=== PATIENT | female | born 1955 | race Caucasian/White ===

== ENCOUNTER 2016-05-04 11:08 | Outpatient (CLI) | payer OTHER ==
--- NOTE | 2016-05-04 17:44 | DIAGNOSTIC IMAGING REPORT ---
PROCEDURE: MG BILATERAL SCREENING W/CAD INDICATION: Screening. Family history breast carcinoma (mother). TECHNIQUE: Bilateral CC and MLO digital views. COMPARISON: Compared to left mammogram (01/07/2016, 05/07/2015), and screening mammogram (05/01/2015). Comparison is also made to multiple prior of screening studies dating to 02/23/2006. FINDINGS: Computer-aided detection applied. Mildly dense and nodular with a few dystrophic calcifications. Stable microcalcifications in the lateral left breast. No change. IMPRESSION: 1. Negative mammogram. RESULT CODE: 1- Negative. A. A negative report should not delay biopsy if a dominant or clinically suspicious mass is present. 10-15% of cancers are not identified by x-ray. B. A negative report may reinforce clinical impression. C. Adenosis and dense breasts may obscure an underlying neoplasm. D. False positive reports average 6-10%. E.. A yearly screening mammogram is recommended. A reminder letter will be scheduled.
== END 2016-05-04 23:00 ==
LOC: MAM SRH 11:08
DX: Z12.31 Encounter for screening mammogram for malignant neoplasm of breast (principal); Z80.3 Family history of malignant neoplasm of breast